=== PATIENT | male | born 1960 | race Caucasian/White ===

== ENCOUNTER → 2022-10-19 | Outpatient (CLI) | payer OTHER ==
[~2022-10-19] MED LIST: IOPAMIDOL 370 MG/ML 100 ML INFUS..BTL INJ ONE
[2022-10-19 12:19] LABS: CREATININE, SERUM 1.08 mg/dL (0.72-1.25)
== END ==
LOC: CT 11:16
PROVIDERS: ATTEND Internal Medicine Interventional Cardiology
DX: I48.91 Unspecified atrial fibrillation (principal); I50.9 Heart failure, unspecified
CPT/HCPCS: 36415; 71275; 82565; 84520; Q9967